=== PATIENT | female | born 1940 | race Asian ===

== ENCOUNTER 2017-12-06 14:56 | Emergency (ER) | payer BC ==
[2017-12-06] MEDS: CEFTRIAXONE 1 GM INJ IM (17:14)
== END 2017-12-06 17:28 | disposition home or self-care (01) ==
LOC: FTE 14:56
DX: H60.01 Abscess of right external ear (principal); I10 Essential (primary) hypertension; Z79.01 Long term (current) use of anticoagulants
CPT/HCPCS: 96372; 99284-25

== ENCOUNTER 2019-05-03 10:29 | Observation (INO) | payer BC ==
[~2019-05-03 10:29] MED LIST: IBUPROFEN 600 MG TAB PO; NACL 0.9% 3 ML SYG IV
[2019-05-03] MEDS ORDERED: MIDAZOLAM 1 MG/ML 2 ML INJ (13:54)
[2019-05-03] MEDS ORDERED: FENTAnyl 50 MCG/ML VIAL (13:54)
[2019-05-03] MEDS ORDERED: SUCCINYLCHOLINE CHLORIDE 100 MG/5 ML SYG IV (13:54)
[2019-05-03] MEDS ORDERED: ONDANSETRON 4 MG INJ (13:54)
[2019-05-03] MEDS ORDERED: ROCURONIUM 50 MG INJ (13:54)
[2019-05-03] MEDS ORDERED: DEXAMETHASONE 4 MG/ML 5 ML INJ (13:54)
[2019-05-03] MEDS ORDERED: DESFLURANE 15 MIN (13:57)
[2019-05-03] MEDS ORDERED: EPHEDrine 25 MG/5 ML SYG (13:57)
[2019-05-03] MEDS ORDERED: PROPOFOL 200 MG INJ (13:57)
[2019-05-03] MEDS ORDERED: LIDOCAINE 2% (SDV) 5 ML INJ (13:57)
[2019-05-03] MEDS ORDERED: DIPHENHYDRAMINE 50 MG INJ IV (14:00)
[2019-05-03] MEDS ORDERED: MIDAZOLAM 1 MG/ML 2 ML INJ IV (14:00)
[2019-05-03] MEDS ORDERED: MEPERIDINE 25 MG INJ IV (14:00)
[2019-05-03] MEDS ORDERED: OXYCODONE/ACETAMINOPHEN (5/325) TAB PO (14:00)
[2019-05-03] MEDS ORDERED: HYDROmorphONE 1 MG/5 ML IV SYRINGE IV (14:00)
[2019-05-03] MEDS ORDERED: EPHEDrine 25 MG/5 ML SYG IV (14:00)
[2019-05-03] MEDS: LIDOCAINE 1%/EPI (1:100,000) (MDV) 20 ML (14:22)
[2019-05-03] MEDS ORDERED: SUGAMMADEX SODIUM 200 MG/2 ML VIAL IV (16:05)
[2019-05-03] MEDS: HYDROmorphONE 1 MG/5 ML IV SYRINGE IV (16:57)
[2019-05-03] MEDS: ONDANSETRON 4 MG INJ IV (16:57)
[2019-05-03] MEDS: hydrALAzine 20 MG INJ IV (16:57)
[2019-05-03] MEDS: FENTAnyl 50 MCG/ML VIAL IV (16:58)
[2019-05-03 17:15] LABS: CALCIUM 9.5 mg/dl (8.4-10.2)
[2019-05-03] MEDS: LABETALOL HCL 20MG INJ IV (17:41)
[2019-05-03] MEDS: HYDROCODONE/APAP (5/325) TAB PO (22:55)
[2019-05-04 01:44] LABS: CALCIUM 9.4 mg/dl (8.4-10.2)
[2019-05-04] MEDS: HYDROCODONE/APAP (5/325) TAB PO (09:04)
[2019-05-04 12:25] LABS: CALCIUM 9.5 mg/dl (8.4-10.2)
== END 2019-05-04 14:13 | disposition home or self-care (01) ==
LOC: SDS 10:29 → MS1 20:23
PROVIDERS: Otolaryngology
DX: C73 Malignant neoplasm of thyroid gland (principal); I10 Essential (primary) hypertension; K21.9 Gastro-esophageal reflux disease without esophagitis
CPT/HCPCS: 60240; 82310; 88307; 88331